=== PATIENT | male | born 1955 | race Two or more races ===

== ENCOUNTER 2023-05-31 15:27 | Outpatient (CLI) | payer MEDICAID, MEDICARE | END 2023-05-31 23:59 | disposition home or self-care (01) | LOC: MRI 15:27 | PROVIDERS: ATTEND Pediatrics Sports Medicine | DX: M75.122 Complete rotator cuff tear or rupture of left shoulder, not specified as traumatic (principal); M19.012 Primary osteoarthritis, left shoulder; M75.02 Adhesive capsulitis of left shoulder; M25.512 Pain in left shoulder | CPT/HCPCS: 73221 ==

== ENCOUNTER 2024-06-09 06:47 | Day surgery (SDC) | payer MEDICARE, OTHER ==
[2024-06-03 14:19] LABS: MONOCYTES # (AUTO) 0.5 X10'3 (0-0.9); PRE OP WHITE BLOOD COUNT 4.7 10'3 (4.8-10.8)
[2024-06-03 14:21] LABS: BASOPHILS % (AUTO) 0.8 % (0-1); LYMPHOCYTES # (AUTO) 1.9 X10'3 (1.1-4.8); LYMPHOCYTES % (AUTO) 41.1 % (21-51); MEAN CORPUSCULAR HEMOGLOBIN 32.8 PG (27.0-31.0); MONOCYTES % (AUTO) 11.4 % (2-12); NEUTROPHILS # (AUTO) 2.2 X10'3 (1.8-7.7); NEUTROPHILS % (AUTO) 45.7 % (42-75); PRE OP HEMOGLOBIN 15.5 g/dL (14.0-17.9); PRE OP PLATELET COUNT 178 X10'3 (140-440); RED BLOOD COUNT 4.71 X10'6 (4.70-6.10); RED CELL DISTRIBUTION WIDTH 13.8 % (11.5-14.5)
[2024-06-03 14:33] LABS: ALBUMIN 4.2 G/DL (3.4-5.0); ALBUMIN/GLOBULIN RATIO 1.3 (1.1-1.5); ALKALINE PHOSPHATASE 53 IU/L (46-116); BLOOD UREA NITROGEN 10 MG/DL (7-18); BUN/CREATININE RATIO 13.7 (10.0-20.0); CALCIUM 9.1 MG/DL (8.5-10.1); CHLORIDE 101 MMOL/L (99-107); CREATININE 0.73 MG/DL (0.60-1.10); PRE OP ALT 32 U/L (30-65); PRE OP ANION GAP 11 (8-16); PRE OP AST 20 U/L (10-37); PRE OP BILIRUB, TOTAL 0.9 MG/DL (0.0-1.0); PRE OP GLUCOSE 112 MG/DL (70-104); PRE OP POTASSIUM 3.5 MMOL/L (3.4-5.1); PRE OP SODIUM 139 MMOL/L (135-145); TOTAL PROTEIN 7.4 G/DL (6.4-8.2); eGFR > 90 ML/MIN
[2024-06-03 15:09] LABS: PRE OP HEMATOCRIT 44.1 % (42.0-52.0)
[2024-06-03 15:10] LABS: MEAN CORPUSCULAR HGB CONC 35.2 g/dL (33.0-36.5)
[~2024-06-09] VITALS: Ht 172.7 cm; Wt 79.2 kg
[2024-06-09] VITALS (9 sets, daily range): BP systolic 115–142; BP diastolic 62–81; PULSE 63–77; RESP 11–32; TEMP 97.2; O2SAT 92–100
[2024-06-09] MEDS: ceFAZolin 2gm in dextrose, iso 50 ML IV ONE (05:30)
[~2024-06-09 06:47] MED LIST: BUPIVAcaine 2.5mg/ml inj 50ml vial (contains preservative) ONE; CHOL100017 PO; DOCUMENT DATE & TIME OF BETA-BLOCKER PO ONE; EMPA25TA PO; EZET-61 PO; LORA10TA7 PO; METO-395 PO; MULT-1085 PO; TAMS-55 PO
[2024-06-09] MEDS ORDERED: morphine 2 MG/ML inj. syringe IV PRN ×2 (07:45→11:35)
[2024-06-09] MEDS ORDERED: meperidine/PF 25mg/ml syringe IV PRN ×3 (07:45)
[2024-06-09] MEDS ORDERED: morphine 4 MG/ML inj SYRINge IV PRN ×2 (07:45→11:35)
[2024-06-09] MEDS ORDERED: proCHLORperazine 10 MG/2 ml inj IV PRN (07:45)
[2024-06-09] MEDS ORDERED: ringers solution, lacted 1,000 ML IV SCH ×2 (07:45→11:35)
[2024-06-09] MEDS ORDERED: enalaprilat 1.25mg/ml 2ml vial IV PRN (07:45)
[2024-06-09] MEDS ORDERED: labetalol 20mg/4ml (5mg/ml) syringe IV PRN ×2 (07:45→11:35)
[2024-06-09] MEDS ORDERED: ondansetron/PF 4mg/2ml inj IV PRN ×2 (07:45→11:35)
[2024-06-09] MEDS: famotidine 20mg tablet PO ONE (07:59)
[2024-06-09] MEDS: ringers solution, lacted 1,000 ML IV SCH (08:00)
[2024-06-09 09:50] LABS: APTT 21 SECONDS (22-32); PROTHROMBIN TIME 10.7 SECONDS (9.0-12.0)
[2024-06-09] MEDS ORDERED: sevoflurane 250ml liquid IH ONE (10:06)
[2024-06-09] MEDS ORDERED: midazolam 1 mg/ML 2ml injection ONE (10:09)
[2024-06-09] MEDS ORDERED: fentaNYL/PF 50MCG/1 ML 2ML syringe ONE (10:09)
[2024-06-09] MEDS ORDERED: propofol inj 20 ML IV ONE (10:11)
[2024-06-09] MEDS ORDERED: dexamethasone sod phosphate 4mg/ml inj. ONE (10:30)
[2024-06-09] MEDS ORDERED: rocuronium 10mg/ml inj IV ONE (10:30)
[2024-06-09] MEDS ORDERED: ROPIVAcaine 0.5% (5mg/ml) 30ml vial ONE (10:30)
[2024-06-09] MEDS ORDERED: HYDROmorphone/PF 0.2 MG/ML SYRINGE IV PRN ×2 (11:35)
[2024-06-09] MEDS ORDERED: ondansetron/PF 4mg/2ml inj ONE (12:08)
[2024-06-09] MEDS ORDERED: glycopyrrolate 0.2mg/ml inj ONE (12:09)
[2024-06-09] MEDS ORDERED: neostigmine methylsulfate 1 MG/ML 10ml vial ONE (12:09)
== END 2024-06-09 13:48 | disposition home or self-care (01) ==
LOC: PAS 06:47
PROVIDERS: ATTEND Specialist
DX: M75.102 Unspecified rotator cuff tear or rupture of left shoulder, not specified as traumatic (principal); M75.22 Bicipital tendinitis, left shoulder; Z79.899 Other long term (current) drug therapy; Z79.01 Long term (current) use of anticoagulants; Z72.89 Other problems related to lifestyle; I10 Essential (primary) hypertension; E11.9 Type 2 diabetes mellitus without complications; G89.18 Other acute postprocedural pain; F17.210 Nicotine dependence, cigarettes, uncomplicated; Z98.890 Other specified postprocedural states
CPT/HCPCS: 23412; 29822; 29826; 36415; 64415; 80053; 82948; 85025; 85610; 85730; A4565; A4618; A6253; A6402; A6455; A7000; C1713; J0690; J1100; J2250; J2405; J2704; J2710; J2795; J3010; J3490; J7120; Z7506; Z7508; Z7512; Z7610; A6449